=== PATIENT | female | born 1990 | race Caucasian/White ===

== ENCOUNTER 2017-04-26 14:37 | Emergency (ER) | payer OTHER ==
[2017-04-26 15:04] LABS: APPEARANCE,URINE Clear; BILIRUBIN,URINE 1+ (NEGATIVE); COLOR,URINE Dark yellow; GLUCOSE, URINE (UA) NEGATIVE (NEGATIVE); KETONES,URINE TRACE (NEGATIVE); LEUKOCYTE ESTERASE ,URINE NEGATIVE (NEGATIVE); NITRATE,URINE NEGATIVE (NEGATIVE); OCCULT BLOOD,URINE NEGATIVE (NEG-TRACE); UROBILINOGEN,URINE 0.2 (0.2-1.0 EU)
[2017-04-26 15:16] LABS: ICTOTEST,URINE NEGATIVE (NEGATIVE); RBC,URINE 0-2 (0-3AV/HPF); WBC,URINE 0-2 (0-5AV/HPF)
[2017-04-26 15:19] VITALS: BP 108/66; PULSE 94; RESP 16; TEMP 97.6; O2SAT 97
== END 2017-04-26 16:20 | disposition home or self-care (01) | DRG 781 ==
LOC: ED 14:37
DX: O26.893 Other specified pregnancy related conditions, third trimester (principal); E86.0 Dehydration; Z3A.33 33 weeks gestation of pregnancy
CPT/HCPCS: 59025; 81001; 99283

== ENCOUNTER 2017-05-14 17:39 | Emergency (ER) | payer OTHER ==
[2017-05-14 18:58] VITALS: BP 101/66; PULSE 90; RESP 16; TEMP 98.9; O2SAT 100
[2017-05-14 18:59] LABS: APPEARANCE,URINE Clear; BILIRUBIN,URINE NEGATIVE (NEGATIVE); COLOR,URINE Yellow; GLUCOSE, URINE (UA) NEGATIVE (NEGATIVE); KETONES,URINE NEGATIVE (NEGATIVE); LEUKOCYTE ESTERASE ,URINE NEGATIVE (NEGATIVE); NITRATE,URINE NEGATIVE (NEGATIVE); OCCULT BLOOD,URINE NEGATIVE (NEG-TRACE); PH,URINE 6.5; UROBILINOGEN,URINE 0.2 (0.2-1.0 EU)
[2017-05-14 19:19] LABS: RBC,URINE NEG (0-3AV/HPF)
[2017-05-14 19:20] LABS: WBC,URINE 0-1 (0-5AV/HPF)
== END 2017-05-14 19:43 | disposition home or self-care (01) | DRG 781 ==
LOC: ED 17:39
DX: O23.593 Infection of other part of genital tract in pregnancy, third trimester (principal); B37.3 Candidiasis of vulva and vagina; Z3A.36 36 weeks gestation of pregnancy
CPT/HCPCS: 81001; 87210; 99282; 99283

== ENCOUNTER 2017-05-25 15:52 | Observation (INO) | payer OTHER ==
[2017-06-04 21:06] VITALS: BP 108/56; PULSE 91; RESP 21; TEMP 97.5; O2SAT 98
== END 2017-06-04 21:31 | disposition home or self-care (01) | DRG 951 ==
LOC: UNDOADMOB 15:52 → OB 15:52
PROVIDERS: ADMIT Family Medicine; ATTEND Family Medicine
DX: Z34.93 Encounter for supervision of normal pregnancy, unspecified, third trimester (principal); Z3A.38 38 weeks gestation of pregnancy
CPT/HCPCS: 59025; 84112

== ENCOUNTER 2017-06-15 07:00 | Inpatient (IN) | payer OTHER ==
[2017-06-15] MEDS ORDERED: FENTANYL 100MCG/2ML SOL IV PRN (07:22)
[2017-06-15] MEDS ORDERED: LACTATED RINGERS 1,000 ML IV PRN (07:22)
[2017-06-15] MEDS ORDERED: OXYTOCIN 10000 MU/ML SOL IM PRN (07:22)
[2017-06-15] MEDS ORDERED: MEPIVACAINE HCL 1% MPF 30 ML SOL INFIL PRN (07:22)
[2017-06-15] MEDS ORDERED: SODIUM CHLORIDE 0.9% FLUSH 10 ML SOL IV PRN (07:22)
[2017-06-15] MEDS ORDERED: METHYLERGONOVINE MALEATE 0.2 MG/ML SOL IM PRN (07:22)
[2017-06-15] MEDS ORDERED: CARBOPROST 250 MCG/ML SOL IM PRN (07:22)
[2017-06-15 08:05] LABS: BASOPHILS % (AUTO) 1 % (0-3); EOSINOPHILS % (AUTO) 1 % (0-9); HEMATOCRIT 27 % (35-47); MEAN CORPUSCULAR HGB CONC 35.2 gm/dl (32.0-36.0); MEAN CORPUSCULAR VOLUME 83 fL (81-99); MONOCYTES % (AUTO) 8.4 % (0-12); NEUTROPHILS % (AUTO) 65.8 % (37-80)
[2017-06-15] MEDS ORDERED: SODIUM CHLORIDE 0.9% 50 ML 25 ML IV PRN (08:28)
[2017-06-15] MEDS ORDERED: AMPICILLIN 1 GM PDS 2 GM in SODIUM CHLORIDE 0.9% 100 ML 100 ML IV SCH (08:30)
[2017-06-15] MEDS: SODIUM CHLORIDE 0.9% FLUSH 10 ML SOL IV SCH ×2 (08:45→16:27)
[2017-06-15] MEDS ORDERED: EPHEDRINE SULFATE 50 MG/ML SOL IV PRN (08:54)
[2017-06-15] MEDS ORDERED: NALOXONE HYDROCHLORIDE 0.4 MG/ML SOL IV PRN (08:54)
[2017-06-15] MEDS ORDERED: DIPHENHYDRAMINE 50 MG/ML SOL IV PRN (08:54)
[2017-06-15] MEDS ORDERED: NALBUPHINE HCL 20 MG/ML SOL IV PRN (08:54)
[2017-06-15] MEDS ORDERED: TERBUTALINE SULFATE 1 MG/ML SOL ONE (10:07)
[2017-06-15] MEDS ORDERED: TERBUTALINE SULFATE 1 MG/ML SOL SC PRN (10:08)
[2017-06-15] MEDS ORDERED: OXYTOCIN 10000 MU/ML 20,000 MU in LACTATED RINGERS 1,000 ML IV SCH (10:15)
[2017-06-15] MEDS ORDERED: LACTATED RINGERS 1,000 ML IV SCH (10:15)
[2017-06-15] MEDS ORDERED: AMPICILLIN 1 GM PDS ONE ×3 (12:15→19:57)
[2017-06-15] MEDS: AMPICILLIN 1 GM PDS 1 GM in SODIUM CHLORIDE 0.9% 100 ML 100 ML IV SCH ×3 (12:31→20:11)
[2017-06-15] MEDS: LACTATED RINGERS 1,000 ML IV SCH ×4 (13:12→22:30)
[2017-06-15] MEDS ORDERED: LACTATED RINGERS 1,000 ML ONE (17:53)
[2017-06-15] MEDS ORDERED: OXYTOCIN 10000 MU/ML SOL ONE (17:53)
[2017-06-15] MEDS ORDERED: ROPIVACAINE HYDROCHLORIDE 5 MG/ML SOL ONE (22:24)
[2017-06-15] MEDS ORDERED: FENTANYL 250 MCG/ 5ML SOL ONE (22:24)
[2017-06-16] MEDS ORDERED: AMPICILLIN 1 GM PDS ONE (00:01)
[2017-06-16] MEDS: AMPICILLIN 1 GM PDS 1 GM in SODIUM CHLORIDE 0.9% 100 ML 100 ML IV SCH ×2 (00:10→05:22)
[2017-06-16] MEDS ORDERED: WITCH HAZEL 1 EA PAD TOP PRN (01:19)
[2017-06-16] MEDS ORDERED: TEMAZEPAM 15MG 15 MG CAP PO PRN (01:19)
[2017-06-16] MEDS ORDERED: BISACODYL 10 MG SUP PR PRN (01:19)
[2017-06-16] MEDS ORDERED: BENZOCAINE/MENTHOL 1 SPR TOP PRN (01:19)
[2017-06-16] MEDS ORDERED: METHYLERGONOVINE MALEATE 0.2 MG TAB PO PRN (01:19)
[2017-06-16] MEDS ORDERED: FLEET ENEMA PR PRN (01:19)
[2017-06-16] MEDS ORDERED: APAP/HYDROCODONE 325/5 TAB PO PRN (01:19)
[2017-06-16] MEDS: IBUPROFEN 600 MG TAB PO PRN ×4 (03:55→20:34)
[2017-06-16] MEDS: SODIUM CHLORIDE 0.9% FLUSH 10 ML SOL IV SCH ×4 (05:30→18:05)
[2017-06-16] MEDS: DOCUSATE SODIUM 100 MG SGL PO SCH ×2 (09:45→20:37)
[2017-06-16 12:41] LABS: ABO O
[2017-06-17] MEDS: SODIUM CHLORIDE 0.9% FLUSH 10 ML SOL IV SCH ×3 (03:00→18:41)
[2017-06-17] MEDS: IBUPROFEN 600 MG TAB PO PRN ×2 (07:48→20:57)
[2017-06-17] MEDS: FERROUS SULFATE 325 MG TAB PO SCH ×2 (09:15→20:46)
[2017-06-17] MEDS: DOCUSATE SODIUM 100 MG SGL PO SCH (09:15)
[2017-06-17 18:37] VITALS: O2SAT 99
[2017-06-17] MEDS ORDERED: DOCUSATE SODIUM 100 MG SGL PO SCH (21:00)
[2017-06-18 02:59] VITALS: BP 100/62; PULSE 69; RESP 16; TEMP 98.2
[2017-06-18 16:31] LABS: RH TYPE Negative
== END 2017-06-18 08:20 | disposition home or self-care (01) | DRG 775 ==
LOC: EDSTATUS 07:00 → OB 07:18 → OBOP 07:18 → OB 06-17 13:16
PROVIDERS: ADMIT Family Medicine; ATTEND Family Medicine
PROC: 10907ZC Drainage of Amniotic Fluid, Therapeutic from Products of Conception, Via Natural or Artificial Opening (ICD-10-PCS; principal; 2017-06-16)
PROC: 10E0XZZ Delivery of Products of Conception, External Approach (ICD-10-PCS; 2017-06-16)
DX: O48.0 Post-term pregnancy (principal); O90.81 Anemia of the puerperium; Z3A.40 40 weeks gestation of pregnancy; O99.824 Streptococcus B carrier state complicating childbirth; Z37.0 Single live birth; O99.335 Smoking (tobacco) complicating the puerperium
CPT/HCPCS: 36415; 59025; 85018; 85025; 86900; 86901; 94762; 99070; J0290; J0670; J2590; J2795; J3010; J3105

== ENCOUNTER 2017-08-24 10:23 | Outpatient (CLI) | payer OTHER | END 2017-08-24 10:24 | disposition home or self-care (01) | DRG 558 | LOC: CONVCARE 10:23 | PROVIDERS: ATTEND Orthopaedic Surgery | DX: M67.461 Ganglion, right knee (principal); M25.561 Pain in right knee | CPT/HCPCS: 73562 ==

== ENCOUNTER 2017-12-28 08:04 | Day surgery (SDC) | payer OTHER ==
[2017-12-28 08:25] VITALS: RESP 16
[2017-12-28] MEDS ORDERED: LIDOCAINE HCL 1% MPF SOL ONE (08:55)
[2017-12-28] MEDS ORDERED: CEPHALEXIN 250 MG/5 ML BOTTLE ONE (10:12)
[2017-12-28 11:09] VITALS: BP 104/69; PULSE 85; TEMP 98.3
== END 2017-12-28 10:50 | disposition home or self-care (01) | DRG 558 ==
LOC: SURG 08:04
PROVIDERS: ATTEND Orthopaedic Surgery
DX: M67.431 Ganglion, right wrist (principal)
CPT/HCPCS: A6402; A9270-GY; J2001

== ENCOUNTER → 2018-08-06 | Day surgery (SDC) | payer OTHER ==
[~2018-08-06] MED LIST: ACETAMINOPHEN 325 MG ONE; SODIUM CHLORIDE 0.9% FLUSH 10 ML SOL IV PRN; WITCH HAZEL 1 EA PAD TOP PRN
[2018-08-06] MEDS: SODIUM CHLORIDE 0.9% 1000ML 1,000 ML IV ONE ×3 (12:50→14:18)
[2018-08-06 13:19] LABS: APPEARANCE,URINE Cloudy; BILIRUBIN,URINE 1+ (NEGATIVE); COLOR,URINE Dark yellow; GLUCOSE, URINE (UA) NEGATIVE (NEGATIVE); KETONES,URINE 1+ (NEGATIVE); LEUKOCYTE ESTERASE ,URINE NEGATIVE (NEGATIVE); NITRATE,URINE NEGATIVE (NEGATIVE); OCCULT BLOOD,URINE 3+ (NEG-TRACE); PH,URINE 5.5
[2018-08-06 13:23] LABS: CALCIUM 8.2 mg/dl (8.5-10.1); CREATININE 0.56 mg/dl (0.60-1.00); POTASSIUM 3.5 mMol/L (3.5-5.1)
[2018-08-06 13:27] LABS: CARBON DIOXIDE 23.4 mEq/L (21-32)
[2018-08-06 14:17] LABS: BACTERIA 1+ (< 1+); CRYSTALS NEGATIVE (0-3 AVE/HPF); EPITHELIAL CELLS 0-3 (SQUAMOUS); ICTOTEST,URINE NEGATIVE (NEGATIVE); RBC,URINE TNTC (0-3AV/HPF); WBC,URINE 0-3 (0-5AV/HPF)
[2018-08-06 15:29] LABS: ABO O; RH TYPE Negative
[2018-08-06] MEDS: SODIUM CHLORIDE 0.9% FLUSH 10 ML SOL IV ONE (16:10)
[2018-08-06] MEDS: LIDOCAINE HCL 1% MPF 30 SOL ONE (16:35)
[2018-08-06 17:00] LABS: ABO O
[2018-08-06 17:02] LABS: RH TYPE Negative
[2018-08-06 17:37] LABS: BASOPHILS % (AUTO) 1 % (0-3); EOSINOPHILS % (AUTO) 2 % (0-9); HEMATOCRIT 20 % (35-47); LYMPHOCYTES % (AUTO) 31.8 % (10-50); MEAN CORPUSCULAR HEMOGLOBIN 27.6 pg (27.0-32.0); MEAN CORPUSCULAR HGB CONC 33.2 gm/dl (32.0-36.0); MEAN CORPUSCULAR VOLUME 83 fL (81-99); MONOCYTES % (AUTO) 4.2 % (0-12); NEUTROPHILS % (AUTO) 61.1 % (37-80)
[2018-08-06 17:42] LABS: HEMOGLOBIN 6.8 gm/dl (12.0-15.5)
[2018-08-06] MEDS: ACETAMINOPHEN 325 MG PO ONE (19:00)
[2018-08-06 20:19] LABS: UNIT TYPE O NEGATIVE
[2018-08-06 20:21] LABS: ANTIBODY SCREEN Positive
[2018-08-06 20:57] VITALS: RESP 16
[2018-08-06] MEDS: SODIUM CHLORIDE 0.9% 500 ML 500 ML IV ONE (23:30)
[2018-08-07 01:43] VITALS: O2SAT 100
[2018-08-07 01:50] VITALS: BP 99/42; PULSE 78; TEMP 97.3
== END | disposition home or self-care (01) | DRG 779 ==
LOC: ED 12:15 → SURG 15:33
PROVIDERS: ATTEND Family Medicine
DX: O03.9 Complete or unspecified spontaneous abortion without complication (principal); O46.92 Antepartum hemorrhage, unspecified, second trimester; Z3A.27 27 weeks gestation of pregnancy
CPT/HCPCS: 36415; 36430; 80048; 81001; 85018; 85025; 86850; 86900; 86901; 86922; 96365; 96366; 99070; 99284; P9016; J2001

== ENCOUNTER 2018-10-08 10:36 | Emergency (ER) | payer OTHER ==
[2018-10-08 10:54] VITALS: TEMP 97.5
[2018-10-08 11:03] LABS: BASOPHILS % (AUTO) 1 % (0-3); EOSINOPHILS % (AUTO) 7 % (0-9); HEMATOCRIT 32 % (35-47); HEMOGLOBIN 9.5 gm/dl (12.0-15.5); LYMPHOCYTES % (AUTO) 24.8 % (10-50); MEAN CORPUSCULAR HEMOGLOBIN 22.7 pg (27.0-32.0); MEAN CORPUSCULAR HGB CONC 29.6 gm/dl (32.0-36.0); MONOCYTES % (AUTO) 6.7 % (0-12); NEUTROPHILS % (AUTO) 60.6 % (37-80)
[2018-10-08 11:04] LABS: MEAN CORPUSCULAR VOLUME 77 fL (81-99)
[2018-10-08 11:15] LABS: APPEARANCE,URINE Clear; BILIRUBIN,URINE NEGATIVE (NEGATIVE); COLOR,URINE Yellow; GLUCOSE, URINE (UA) NEGATIVE (NEGATIVE); KETONES,URINE NEGATIVE (NEGATIVE); LEUKOCYTE ESTERASE ,URINE NEGATIVE (NEGATIVE); NITRATE,URINE NEGATIVE (NEGATIVE); OCCULT BLOOD,URINE NEGATIVE (NEG-TRACE); PH,URINE 6.5; UROBILINOGEN,URINE 0.2 (0.2-1.0 EU)
[2018-10-08 11:24] LABS: BACTERIA TRACE (< 1+); CRYSTALS NEGATIVE (0-3 AVE/HPF); EPITHELIAL CELLS 0-2 (SQUAMOUS); RBC,URINE 0-1 (0-3AV/HPF); WBC,URINE 0-1 (0-5AV/HPF)
[2018-10-08 11:25] LABS: ALBUMIN 3.9 gm/dl (3.4-5.0); BILIRUBIN,TOTAL 0.3 mg/dl (0.2-1.0); CALCIUM 9.2 mg/dl (8.5-10.1); CARBON DIOXIDE 24.5 mEq/L (21-32); CREATININE 0.65 mg/dl (0.60-1.00); POTASSIUM 3.9 mMol/L (3.5-5.1); THYROID STIMULATING HORMONE 1.018 uIU/ml (0.358-3.740); TOTAL PROTEIN 7.9 gm/dl (6.4-8.2)
[2018-10-08 11:33] VITALS: BP 101/66; PULSE 84; RESP 18; O2SAT 99
[2018-10-08 11:37] LABS: ANISOCYTOSIS SLIGHT AMT; HYPOCHROMASIA SLIGHT AMT; OVALOCYTES PRESENT; POIKILOCYTOSIS SLIGHT AMT
== END 2018-10-08 11:44 | disposition home or self-care (01) | DRG 812 ==
LOC: ED 10:36
DX: D64.9 Anemia, unspecified (principal)
CPT/HCPCS: 36415; 80053; 81001; 84443; 84703; 85025; 99282; 99283

== ENCOUNTER 2018-11-20 12:57 | Emergency (ER) | payer OTHER ==
[2018-11-20 13:30] VITALS: TEMP 97.6
[2018-11-20 13:39] VITALS: BP 111/72; PULSE 89; RESP 16; O2SAT 99
== END 2018-11-20 13:24 | disposition home or self-care (01) | DRG 159 ==
LOC: ED 12:57
DX: K08.89 Other specified disorders of teeth and supporting structures (principal)
CPT/HCPCS: 99282

== ENCOUNTER 2019-01-01 14:42 | Emergency (ER) | payer OTHER ==
[2019-01-01 15:09] VITALS: BP 103/68; PULSE 95; RESP 18; TEMP 98.6; O2SAT 100
[2019-01-01 16:07] LABS: BASOPHILS % (AUTO) 2 % (0-3); EOSINOPHILS % (AUTO) 7 % (0-9); HEMATOCRIT 32 % (35-47); HEMOGLOBIN 9.8 gm/dl (12.0-15.5); LYMPHOCYTES % (AUTO) 30.1 % (10-50); MEAN CORPUSCULAR HGB CONC 30.4 gm/dl (32.0-36.0); NEUTROPHILS % (AUTO) 55.6 % (37-80)
[2019-01-01 16:29] LABS: MEAN CORPUSCULAR VOLUME 73 fL (81-99)
[2019-01-01 17:14] LABS: ABO O
[2019-01-01 17:23] LABS: ANTIBODY SCREEN Negative
[2019-01-01 17:24] LABS: RH TYPE Negative
[2019-01-01 17:36] LABS: ANISOCYTOSIS SLIGHT; HYPOCHROMASIA PRESENT; OVALOCYTES PRESENT; POIKILOCYTOSIS SLIGHT
== END 2019-01-01 17:40 | disposition home or self-care (01) | DRG 833 ==
LOC: ED 14:42
DX: O20.9 Hemorrhage in early pregnancy, unspecified (principal); Z3A.00 Weeks of gestation of pregnancy not specified; Z67.41 Type O blood, Rh negative
CPT/HCPCS: 36415; 84703; 85025; 86850; 86900; 86901; 99283

== ENCOUNTER 2019-02-04 11:29 | Day surgery (SDC) | payer MEDICARE, OTHER ==
[2019-02-04] MEDS ORDERED: LIDOCAINE HCL 2% MPF 10 ML SOL ONE (12:37)
[2019-02-04] MEDS ORDERED: KETOROLAC TROMETHAMINE 30 MG/ML SOL ONE (12:45)
[2019-02-04] MEDS ORDERED: METHYLERGONOVINE MALEATE 0.2 MG/ML SOL ONE (12:54)
[2019-02-04 13:26] VITALS: RESP 16
[2019-02-04 13:37] VITALS: O2SAT 98
[2019-02-04 13:43] VITALS: BP 92/66; PULSE 64; TEMP 99.2
[2019-02-04 13:57] LABS: ABO O
[2019-02-04 14:00] LABS: RH TYPE Negative
== END 2019-02-04 14:30 | disposition home or self-care (01) | DRG 779 ==
LOC: SURG 11:29
PROVIDERS: ATTEND Family Medicine
DX: O03.9 Complete or unspecified spontaneous abortion without complication (principal)
CPT/HCPCS: 86900; 86901; J1885; J2210

== ENCOUNTER 2019-03-14 21:51 | Emergency (ER) | payer MEDICARE, OTHER ==
[2019-03-14 22:12] VITALS: RESP 16; TEMP 97.7; O2SAT 100
[2019-03-14 23:07] LABS: BASOPHILS % (AUTO) 2 % (0-3); EOSINOPHILS % (AUTO) 9 % (0-9); HEMATOCRIT 35 % (35-47); HEMOGLOBIN 11.4 gm/dl (12.0-15.5); LYMPHOCYTES % (AUTO) 44.2 % (10-50); MEAN CORPUSCULAR HEMOGLOBIN 27.3 pg (27.0-32.0); MEAN CORPUSCULAR HGB CONC 32.9 gm/dl (32.0-36.0); MEAN CORPUSCULAR VOLUME 83 fL (81-99); MONOCYTES % (AUTO) 6.6 % (0-12); NEUTROPHILS % (AUTO) 38.7 % (37-80)
[2019-03-14 23:14] LABS: APPEARANCE,URINE Clear; BILIRUBIN,URINE NEGATIVE (NEGATIVE); COLOR,URINE Yellow; GLUCOSE, URINE (UA) NEGATIVE (NEGATIVE); KETONES,URINE NEGATIVE (NEGATIVE); LEUKOCYTE ESTERASE ,URINE NEGATIVE (NEGATIVE); NITRATE,URINE NEGATIVE (NEGATIVE); OCCULT BLOOD,URINE NEGATIVE (NEG-TRACE); UROBILINOGEN,URINE 0.2 (0.2-1.0 EU)
[2019-03-14 23:16] LABS: CALCIUM 8.7 mg/dl (8.5-10.1); CREATININE 0.7 mg/dl (0.60-1.00)
[2019-03-14 23:21] LABS: CARBON DIOXIDE 27.8 mEq/L (21-32)
[2019-03-14 23:22] LABS: BACTERIA RARE (< 1+); CRYSTALS NEGATIVE (0-3 AVE/HPF); EPITHELIAL CELLS 0-4 (SQUAMOUS); RBC,URINE 0-1 (0-3AV/HPF); WBC,URINE NEG (0-5AV/HPF)
[2019-03-15 00:05] VITALS: BP 105/69; PULSE 64
== END 2019-03-14 23:42 | disposition home or self-care (01) | DRG 812 ==
LOC: ED 21:51
DX: D64.9 Anemia, unspecified (principal); E86.0 Dehydration
CPT/HCPCS: 36415; 80048; 81001; 85025; 99282